=== PATIENT | female | born 1975 | race Asian ===

== ENCOUNTER 2020-10-27 18:53 | Emergency (ER) | payer OTHER ==
[~2020-10-27] VITALS: Ht 160 cm; Wt 59.9 kg
[2020-10-27 19:37] VITALS: BP_SYST 148
[2020-10-27] MEDS ORDERED: GASTROGRAFIN 120 ML ONE (21:20)
[2020-10-28 00:58] VITALS: BP_SYST 134
== END 2020-10-28 00:58 | disposition home or self-care (01) ==
LOC: SED 18:53
DX: K94.23 Gastrostomy malfunction (principal)
CPT/HCPCS: 43762; 74240; 99284; Q9963